=== PATIENT | male | born 1995 | race African-American/Black ===

== ENCOUNTER 2016-04-30 11:01 | Emergency (ER) | payer MEDICAID ==
[~2016-04-30] VITALS: Ht 180.3 cm; Wt 70.3 kg
[2016-04-30 11:14] VITALS: BP 145/74
== END 2016-04-30 12:49 | disposition home or self-care (01) ==
LOC: ER 11:06
DX: H10.32 Unspecified acute conjunctivitis, left eye (principal); F17.210 Nicotine dependence, cigarettes, uncomplicated; F12.10 Cannabis abuse, uncomplicated

== ENCOUNTER 2016-09-12 21:53 | Emergency (ER) | payer MEDICAID ==
[~2016-09-12] VITALS: Ht 182.9 cm; Wt 72.6 kg
[2016-09-12 22:54] LABS: Basophils # (auto) 0.1 uL; Basophils % (auto) 0.7 % (0.0-2.0); CONDITION Y; DEFINITIVE SEE PRINTOUT; Eosinophils # (auto) 0.3 uL; Eosinophils % (auto) 3.1 % (0.0-7.0); Hematocrit 45.7 % (41.0-53.0); Hemoglobin 15.1 g/dL (13.5-17.5); Lymphocytes # (auto) 3.6 uL; Mean Corpuscular Hemoglobin 33.5 pg (28.0-32.0); Mean Corpuscular Volume 101.6 fL (80.0-100.0); Mean Platelet Volume 9.4 fL (7.4-10.4); Monocytes # (auto) 0.9 uL; Monocytes % (auto) 9.9 % (0.0-12.0); Neutrophils # (auto) 3.9 uL; Neutrophils % (auto) 45.3 % (37.0-80.0); Platelet Count (auto) 243 10^3/uL (140-450); Red Cell Distribution Width 12.9 % (11.6-16.0); White Blood Cell 8.7 10^3/uL (4.4-10.8)
[2016-09-12 23:06] LABS: Albumin 4.4 g/dL (3.4-5.0); Calcium 8.8 mg/dL (8.5-10.1); Potassium 3.7 mmol/L (3.5-5.1)
[2016-09-12 23:07] LABS: Partial Thromboplastin Time 28.5 sec (22.64-33.71); Prothrombin Time 10.9 sec (9.37-12.3)
[2016-09-12 23:08] LABS: BUN/Creatinine Ratio 7.1
[2016-09-12 23:10] LABS: Bilirubin, Total 0.4 mg/dL (0.2-1.0); Total Protein 8.3 g/dL (6.4-8.2)
[2016-09-12 23:12] LABS: Urine Bilirubin Negative (Negative); Urine Blood Negative /uL (Negative); Urine Color Yellow (Yellow); Urine Glucose Normal (Normal); Urine Ketone Negative (Negative); Urine Mucus FEW (None Seen); Urine Nitrite Negative (Negative); Urine RBC 1 /hpf (0 - 3); Urine pH 6.5 (5.0-8.0)
[2016-09-13 05:50] VITALS: BP 136/67
== END 2016-09-13 05:52 | disposition home or self-care (01) ==
LOC: ER 21:55
DX: R10.31 Right lower quadrant pain (principal); R11.2 Nausea with vomiting, unspecified; R19.7 Diarrhea, unspecified; F12.10 Cannabis abuse, uncomplicated; K59.00 Constipation, unspecified; H10.9 Unspecified conjunctivitis; F17.210 Nicotine dependence, cigarettes, uncomplicated
CPT/HCPCS: 36415; 74176; 80053; 81001; 82150; 83690; 85025; 85610; 85730

== ENCOUNTER 2017-09-18 14:50 | Emergency (ER) | payer MEDICAID, OTHER ==
[~2017-09-18] VITALS: Ht 182.9 cm; Wt 68.0 kg
[2017-09-18] MEDS ORDERED: cefTRIAXone 1GM/10ml IVPUSH 10 ML IV ONE (14:53)
[2017-09-18] MEDS ORDERED: cefTRIAXone SOD 1,000 MG VL IM ONE (17:15)
[2017-09-18 17:39] VITALS: BP 146/84
== END 2017-09-18 17:53 | disposition home or self-care (01) ==
LOC: ER 14:50
DX: S76.912A Strain of unspecified muscles, fascia and tendons at thigh level, left thigh, initial encounter (principal); F17.210 Nicotine dependence, cigarettes, uncomplicated; F12.10 Cannabis abuse, uncomplicated; Z87.11 Personal history of peptic ulcer disease; V09.9XXA Pedestrian injured in unspecified transport accident, initial encounter; Y93.89 Activity, other specified; Y92.488 Other paved roadways as the place of occurrence of the external cause; Y99.8 Other external cause status
CPT/HCPCS: 72100; 96372; 99284; J0696

== ENCOUNTER 2020-05-29 | Emergency (ER) | payer OTHER ==
[~2020-05-29] VITALS: Ht 182.9 cm; Wt 72.6 kg
[2020-05-29 00:01] VITALS: BP 141/81
[2020-05-29] MEDS ORDERED: NEOMYCIN-BACITRACIN-POLYM UNITDOSE PKG TOP OINT TOP ONE (01:30)
== END 2020-05-29 01:39 | disposition home or self-care (01) ==
LOC: ER 00:03
DX: S61.011A Laceration without foreign body of right thumb without damage to nail, initial encounter (principal); F17.210 Nicotine dependence, cigarettes, uncomplicated; F12.10 Cannabis abuse, uncomplicated; W26.8XXA Contact with other sharp object(s), not elsewhere classified, initial encounter; Y93.89 Activity, other specified; Y92.89 Other specified places as the place of occurrence of the external cause; Y99.8 Other external cause status
CPT/HCPCS: 12001; 73120; J2001